=== PATIENT | female | born 1960 | race Caucasian/White ===

== ENCOUNTER 2021-11-23 21:17 | Emergency (ER) | payer OTHER ==
[2021-11-23] MEDS ORDERED: Sodium Chloride 0.9% 10 ML Syringe FLUSH PRN (21:39)
== END 2021-11-23 23:00 | disposition home or self-care (01) ==
LOC: JD.ED 21:17
DX: R03.0 Elevated blood-pressure reading, without diagnosis of hypertension (principal); Z86.16 Personal history of COVID-19
CPT/HCPCS: 36415; 71045; 71045-26; 80053; 83735; 83880; 84484; 85025; 85610; 85730; 93005; 93010; 99283; 99284